=== PATIENT | male | born 1975 | race Two or more races ===

== ENCOUNTER 2016-11-06 01:47 | Inpatient (IN) | payer MEDICAID ==
[2016-11-06] VITALS (8 sets, daily range): BP systolic 130–151; BP diastolic 74–112
[~2016-11-06] VITALS: Ht 167.6 cm; Wt 209.6 kg
[~2016-11-06 01:47] MED LIST: CIPROFLOXACIN250 MG PO; HYDROCHLOROTHIA25 MG ORAL; IBUPROFEN600 MG PO; LEVAQUIN750 MG ORAL; LISINOPRIL20 MG ORAL; NAPROXEN500 M2 ORAL; NORCO 5-325 TA1 EACH ORAL; UNOBMED
--- NOTE | 2016-11-06 02:16 | Emergency Room Report ---
History of Present Illness General Chief Complaint: Edema Source: Patient Present Illness [facility] This is a 41-year-old male who has a history of fluid retention and morbid obesity. His BMI 71. He presents with chief complaint of swelling. He noticed it more in the last day or so. He said that his scrotum very swollen. Denies any nausea vomiting. Has shows of breath this is chronic. Worse when he lays flat. Worse when he exerts himself. No pain. No dysuria frequency. No nausea no vomiting. Said his water pill is not working. Allergies: Coded Allergies: No Known Allergies (Unverified , 03/09/13) Patient History Past Medical History: see triage record, old chart reviewed, CHF Past Surgical History: other Pertinent Family History: none Social History: Denies: smoking Immunizations: other Reviewed Nursing Documentation: PMH: Agreed, PSxH: Agreed Nursing Documentation-PMH Past Medical History: No History, Except For Hx Cardiac Problems: No Hx Hypertension: Yes Hx Diabetes: Yes Hx Cancer: No Hx Gastrointestinal Problems: No Hx Neurological Problems: No Hx Cerebrovascular Accident: No Hx Head Trauma: No Review of Systems Eye: Denies: eye pain, blurred vision ENT: Denies: ear pain, nose congestion, throat swelling Respiratory: Denies: cough, shortness of breath Cardiovascular: Denies: chest pain, palpitations Gastrointestinal: Denies: abdominal pain, diarrhea, nausea, vomiting Musculoskeletal: Denies: back pain, joint pain Skin: Denies: rash Neurological: Denies: headache, numbness Endocrine: Denies: increased thirst, increased urine Hematologic/Lymphatic: Denies: easy bruising All Other Systems: negative except mentioned in HPI Physical Exam Vital Signs Date Time Temp Pulse Resp B/P (MAP) Pulse Ox O2 Delivery O2 Flow Rate FiO2 11/06/16 01:49 98.1 135 22 155/120 94 Room Air vitals with high blood pressure and tachycardia Sp02 EP Interpretation: reviewed, normal General Appearance: alert, obese - Morbidly obese Head: normocephalic, atraumatic Eyes: bilateral eye PERRL, bilateral eye EOMI ENT: hearing grossly normal, normal pharynx Neck: full range of motion, supple, no meningismus Respiratory: chest non-tender, lungs clear, normal breath sounds Cardiovascular #1: regular rate, rhythm, no murmur, tachycardia, irregularly irregular Gastrointestinal: normal bowel sounds, non tender, no mass, no organomegaly, no bruit, non-distended, overweight - Very large pannus Genitourinary: other - Scrotum show diffuse edema. His penis is severely retracted inward. Musculoskeletal: back normal, normal range of motion Psychiatric: mood/affect normal Skin: warm/dry Procedures Critical Care Time Critical Care Time Critical care is mandated in this patient who presented with rapid afib and chf. Patient require my urgent intervention to attenuate the risks of metabolic collapse which may lead to cardiovascular collapse and . Critical care time is 35 minutes excluding any reportable procedure. Critical care time included evaluation, multiple reevaluation, looking at old charts, interpreting laboratory and diagnostic data, discussing case with patient and family and consultants, and charting. Medical Decision Making Diagnostic Impression: Primary Impression: CHF (congestive heart failure) Qualified Codes: I50.9 - Heart failure, unspecified Additional Impressions: Rapid atrial fibrillation Hypertension Qualified Codes: I10 - Essential (primary) hypertension Morbid obesity with BMI of 70 and over, adult Proteinuria Qualified Codes: R80.9 - Proteinuria, unspecified ER Course Patient presents with generalize edema. His CHF is probably cardiomyopathy secondary to hypertension and morbid obesity and sleep apnea. He diuresed about 2 L. [place] better. He never had a history of it her fibrillation at least based on his medication. He is only taking lisinopril and a statin. He is not on any anticoagulations. Will admit for further workup. Blood pressure much improved with Cardizem. Heart rate is now sinus at 94. Lab Results Impression labs with elevated BNP EKG Diagnostic Results EKG Time: 05:09 Rate: tachycardiac Rhythm: other - Atrial fibrillation ST Segments: other - Nonspecific ST changes Rhythm Strip Diag. Results Rhythm Strip Time: 05:09 EP Interpretation: yes Rate: 95 Rhythm: NSR, no PVC's, no ectopy Chest X-Ray Diagnostic Results Chest X-Ray Diagnostic Results : Chest X-Ray Ordered: Yes # of Views/Limited/Complete: 1 View Indication: Shortness of Breath EP Interpretation: Yes Interpretation: no consolidation, no effusion, no pneumothorax, other - Cardiomegaly Impression: Other - Cardiomegaly with vascular congestion Electronically Signed by: Electronically signed by Manuel Mills MD Last Vital Signs Date Time Temp Pulse Resp B/P (MAP) Pulse Ox O2 Delivery O2 Flow Rate FiO2 9/18/17 01:49 98.1 135 22 155/120 94 Room Air Status: unchanged Disposition: ADMITTED INPATIENT Condition: Serious Referrals: NON PHYSICIAN (PCP) MANUEL MILLS M.D. Nov 06, 2016 02:16
[2016-11-06 02:51] LABS: APPEARANCE,URINE CLEAR; KETONES,URINE 1+ (NEGATIVE); LEUKOCYTE ESTERASE ,URINE 1+ (NEGATIVE); NITRITE,URINE NEGATIVE (NEGATIVE); PH,URINE 6 (4.5-8.0); PROTEIN,URINE 4+ (NEGATIVE); UROBILINOGEN,URINE 1 MG/DL (0.0-1.0)
[2016-11-06 02:58] LABS: BASOPHILS % (AUTO) 1.3 % (0.0-2.0); EOSINOPHILS % (AUTO) 1.6 % (0.0-3.0); LYMPHOCYTES % (AUTO) 20.9 % (20.0-45.0); MEAN CORPUSCULAR HEMOGLOBIN 23.5 PG (27.0-31.0); MEAN CORPUSCULAR HGB CONC 30.8 G/DL (32.0-36.0); MEAN CORPUSCULAR VOLUME 76 FL (80-99); MEAN PLATELET VOLUME 6.1 FL (6.5-10.1); MONOCYTES % (AUTO) 7.9 % (1.0-10.0); NEUTROPHILS % (AUTO) 68.3 % (45.0-75.0); PLATELET COUNT 464 K/UL (150-450); RED BLOOD COUNT 5.48 M/UL (4.70-6.10); WHITE BLOOD COUNT 10.4 K/UL (4.8-10.8)
[2016-11-06 03:09] LABS: ANION GAP 10 (5-15); CALCIUM 10.2 mg/dL (8.6-10.2); CARBON DIOXIDE 31 mEQ/L (20-30); CHLORIDE 100 mEQ/L (98-107); CREATININE 1.3 mg/dL (0.7-1.2); GLOMERULAR FILTRATION RATE > 60 mL/min (>60); HEMOLYSIS 0; POTASSIUM 4.5 mEQ/L (3.4-4.9); SODIUM 141 mEQ/L (135-145)
[2016-11-06 03:13] LABS: BACTERIA,URINE FEW /HPF; FINE GRANULAR CASTS,URINE 0-2 /LPF; HYALINE CASTS, URINE 0-2 /LPF; RBC,URINE 0-2 /HPF (0 - 0); SQUAMOUS EPITHELIAL CELL,UR MODERATE /LPF (NONE/OCC); WBC,URINE 0-2 /HPF (0 - 0)
[2016-11-06 03:14] LABS: ICTOTEST POSITIVE
[2016-11-06] MEDS ORDERED: dilTIAZem HCl 25mg/5ml Inj IV ONE (03:15)
[2016-11-06 03:32] LABS: TROPONIN I < 0.30 ng/mL (<=0.30)
[2016-11-06] MEDS ORDERED: Acetaminophen 650 MG SUPP RECTAL PRN (07:00)
[2016-11-06] MEDS ORDERED: Miralax 17gm pkt ORAL PRN (07:00)
[2016-11-06] MEDS ORDERED: Mylanta II UD 30ml ORAL PRN (07:00)
[2016-11-06] MEDS: Docusate 100mg cap ORAL SCH ×2 (08:43→21:04)
[2016-11-06] MEDS: Aspirin EC 81mg tab ORAL SCH (08:43)
[2016-11-06] MEDS ORDERED: Metoprolol Succinate XL 50mg tab ORAL SCH (09:00)
--- NOTE | 2016-11-06 10:31 | Diagnostic Imaging Report ---
Indication: SOB Technique: One view of the chest Comparison: 12/03/2015 12/03/2015 Findings: Patient body habitus limits evaluation. The heart is markedly enlarged. There is equivocal mild interstitial congestion. No definite effusions Impression: Cardiomegaly Possible mild congestive heart failure. Correlate with clinical findings
[2016-11-06] MEDS: Heparin 5000 units/ml inj SUBQ SCH ×2 (14:13→22:29)
--- NOTE | 2016-11-06 17:44 | Cardiology Progress Note ---
Subjective Subjective [id number] Objective Last 24 Hour Vital Signs Date Time Temp Pulse Resp B/P (MAP) Pulse Ox O2 Delivery O2 Flow Rate FiO2 11/06/16 16:00 97.5 113 20 150/74 99 Nasal Cannula 11/06/16 16:00 109 11/06/16 12:33 97.0 102 20 151/90 100 Nasal Cannula 2.0 11/06/16 12:00 115 11/06/16 08:43 100 139/95 11/06/16 08:00 91 11/06/16 08:00 97.5 100 20 139/95 96 Nasal Cannula 11/06/16 06:30 98.1 108 19 134/96 97 Nasal Cannula 2.0 11/06/16 06:30 97.8 98 20 130/82 98 Nasal Cannula 2.0 11/06/16 05:57 98.1 108 19 134/96 97 Nasal Cannula 2.0 11/06/16 04:18 98.1 64 16 151/106 98 Nasal Cannula 2.0 11/06/16 03:11 130 151/112 11/06/16 02:42 98.1 124 27 151/112 97 Room Air 11/06/16 02:42 124 27 Room Air 11/06/16 01:49 98.1 135 22 155/120 94 Room Air Intake and Output 11/06/16 11/07/16 19:00 07:00 Intake Total 590 ml Balance 590 ml Intake Oral 590 ml # Voids 1 Laboratory Tests Test 11/06/16 02:12 11/06/16 02:20 Urine Color Yellow Urine Appearance Clear Urine pH 6 (4.5-8.0) Urine Specific [place] 1.020 (1.005-1.035) Urine Protein 4+ (NEGATIVE) H Urine Glucose (UA) Negative (NEGATIVE) Urine Ketones 1+ (NEGATIVE) H Urine Occult Blood 1+ (NEGATIVE) H Urine Nitrite Negative (NEGATIVE) Urine Bilirubin 1+ (NEGATIVE) H Urine Ictotest Positive Urine Urobilinogen 1 MG/DL (0.0-1.0) H Urine Leukocyte Esterase 1+ (NEGATIVE) H Urine RBC 0-2 /HPF (0 - 0) H Urine WBC 0-2 /HPF (0 - 0) Urine Squamous Epithelial Cells Moderate /LPF (NONE/OCC) H Urine Bacteria Few /HPF (NONE) Urine Hyaline Casts 0-2 /LPF (NONE) H Urine Fine Granular Casts 0-2 /LPF (NONE) H White Blood Count 10.4 K/UL (4.8-10.8) Red Blood Count 5.48 M/UL (4.70-6.10) Hemoglobin 12.8 G/DL (14.2-18.0) L Hematocrit 41.8 % (42.0-52.0) L Mean Corpuscular Volume 76 FL (80-99) L Mean Corpuscular Hemoglobin 23.5 PG (27.0-31.0) L Mean Corpuscular Hemoglobin Concent 30.8 G/DL (32.0-36.0) L Red Cell Distribution Width 17.0 % (11.6-14.8) H Platelet Count 464 K/UL (150-450) H Mean Platelet Volume 6.1 FL (6.5-10.1) L Neutrophils (%) (Auto) 68.3 % (45.0-75.0) Lymphocytes (%) (Auto) 20.9 % (20.0-45.0) Monocytes (%) (Auto) 7.9 % (1.0-10.0) Eosinophils (%) (Auto) 1.6 % (0.0-3.0) Basophils (%) (Auto) 1.3 % (0.0-2.0) Sodium Level 141 mEQ/L (135-145) Potassium Level 4.5 mEQ/L (3.4-4.9) Chloride Level 100 mEQ/L (98-107) Carbon Dioxide Level 31 mEQ/L (20-30) H Anion Gap 10 (5-15) Blood Urea Nitrogen 20 mg/dL (7-23) Creatinine 1.3 mg/dL (0.7-1.2) H Estimat Glomerular Filtration Rate > 60 mL/min (>60) Glucose Level 123 mg/dL (74-106) H Calcium Level 10.2 mg/dL (8.6-10.2) Troponin I < 0.30 ng/mL (<=0.30) Pro-B-Type Natriuretic Peptide 3680 pg/mL (0-125) H OLIVER MALDONADO Nov 06, 2016 17:44
[2016-11-06] MEDS ORDERED: Metoprolol Succinate XL 25mg tab ORAL ONE (18:00)
--- NOTE | 2016-11-06 18:30 | History and Physical Report ---
DATE OF ADMISSION: 11/06/2016 CHIEF COMPLAINT: Shortness of breath and generalized swelling. History Of Present Illness: This is a 41-year-old male, who has history of morbid obesity and hypertension. The patient is followed at [facility] in [place]. The patient claims that he was never admitted to hospital and never had irregular heart rate. He presented to the emergency department in full-blown heart failure and atrial fibrillation. PAST MEDICAL HISTORY: 1. Morbid obesity. 2. Hypertensive cardiovascular disease. 3. Borderline diabetes. Home Medications: [place] p.r.n., hydrochlorothiazide, Motrin p.r.n., recent treatment with Levaquin, lisinopril, and naproxen p.r.n. ALLERGIES: No known drug allergies. FAMILY HISTORY: Unremarkable. Social History: The patient is employed. He is nonsmoker and nondrinker. There is no history of illicit drug abuse. Review Of Systems: HEENT: Hearing and eyesight are normal. Endocrine: Significant for morbid obesity and borderline diabetes. Respiratory: Significant for gradual increasing shortness of breath. Cardiovascular: He denies chest pain. He has recurrent palpitations. Gastrointestinal: No history of hematochezia, melena, hematemesis, diarrhea, or constipation. Genitourinary: He denies dysuria. He has nocturia x2 to 3. Neurologic: No history of stroke, syncope, or Parkinson disease. PHYSICAL EXAMINATION: GENERAL: This is a middle-aged morbidly obese male. Vital Signs: His weight is 200 pounds, height is 167.6 cm, and BMI 71. Current blood pressure is 134/96, pulse 98, respirations 18, and temperature 98.1. HEENT: Head is normocephalic and atraumatic. Pupils are equal, round, and reactive to light and accommodation consensually. Neck: Supple. Trachea midline. There was no lymphadenopathy or thyromegaly. LUNGS: Clear to auscultation and percussion. Heart: Irregularly irregular and distant. No rubs, murmurs, or gallops. ABDOMEN: Soft. Bowel sounds were active. EXTREMITIES: Notable for 3+ brawny edema bilaterally. Neurological: He is alert and oriented x4. Cranial nerves II through XII are intact. Laboratory And Ancillary Data: CBC within normal limits. Serum chemistry, creatinine 1.3, BUN 20, and CO2 31. Pro-B natriuretic peptide 3680. Troponin level less than 0.3. EKG, atrial flutter with variable AV block. Chest x-ray, no consolidation, no effusion; cardiomegaly. ASSESSMENT: 1. Paroxysmal atrial fibrillation/flutter. 2. Worsening congestive heart failure, mainly diastolic. 3. Morbid obesity. 4. Hypertensive cardiovascular disease. 5. Borderline diabetes. PLAN: 1. Cardizem, currently the patient's heart rate is tolerable, less than 100. 2. beta-blockers. 3. Check 2D echo. 4. Cardiology consult. 5. Continue to diurese. Rosemarie Jackson M.D. DR: DAO JOB#: [id number] CC:
--- NOTE | 2016-11-06 18:56 | Cardiology Report ---
APPROVED REPORT EXAM: Two-dimensional and M-mode echocardiogram with Doppler and color Doppler. INDICATION Complete Heart Block M-Mode DIMENSIONS IVSd1.1 (0.7-1.1cm)Left Atrium (MM)6.3 (1.6-4.0cm) LVDd6.8 (3.5-5.6cm)Aortic Root3.2 (2.0-3.7cm) PWd1.3 (0.7-1.1cm)Aortic Cusp Exc.2.0 (1.5-2.0cm) LVDs5.2 (2.5-4.0cm) PWs1.4 cm Technically limited and difficult study due to poor acoustical windows. Normal left ventricular chamber size, systolic function and wall motion. Left ventricular ejection fraction estimated to be grossly normal. No evidence of left ventricular hypertrophy. Small posterior pericardial effusion. Focal aortic valve sclerosis with adequate cusp excursion. Thickened mitral valve leaflets with normal excursion. Mild mitral annulus and aortic root calcification. Pulmonic valve is well visualized. Normal tricuspid valve structure. IVC not obtainable. A color flow and spectral Doppler study was performed and revealed: Pulmonic regurgitation present. Small pericardial effusion.
[2016-11-07 00:14] VITALS: BP 156/81
--- NOTE | 2016-11-07 01:15 | Consultation ---
DATE OF CONSULTATION: 11/06/2016 CARDIOLOGY CONSULTATION CONSULTING PHYSICIAN: Brittney Wood M.D. ATTENDING PHYSICIAN: Rosemarie Jackson M.D. PATIENT IDENTIFICATION DATA: This is a 41-year-old male. REASON FOR ADMISSION: Extreme edema and shortness of breath. History Of Present Illness: The patient reports that he gained approximately 300 pounds in 4 years and then he became very short of breath. He is going to outside clinic. He also has severe edema of his scrotum and lower extremities. Previously, he was here in the hospital and he had drainage of the swollen fluid around his knee. The patient does not have any chest pain. No syncopal episode, but he is short of breath, although right now he feels slightly better. Past Medical History: Significant for morbid obesity, swelling, knee drainage, and left arm surgery for fracture. MEDICATIONS: His medications are reviewed and reconciled. ALLERGIES: Not documented. HABITS: He denies history of drinking, smoking, or drug abuse. SOCIAL HISTORY: He is and lives with his son. Review Of Systems: Significant for shortness of breath. No cough. No hemoptysis. No blood in the stool. No diarrhea. Severe swelling of lower extremities. Pain of all joints. PHYSICAL EXAMINATION: General: This is a 41-year-old gentleman, who is morbidly obese. He is resting in his bed. He is moderately short of breath. Vital Signs: His blood pressure is 150/70, his heart rate is 113, his temperature is 98.1, and his oxygen saturation on two liters of oxygen is 96%. HEENT: PERRLA. EOMI. NECK: Supple. Jugular pressure is not measurable due to short neck. LUNGS: Scattered crackles. No wheezing. HEART: Irregular. Very distant. Abdomen: Morbidly obese. There is anasarca. There is skin thickening at the dependent areas of his abdomen, testicles, and on his legs. He has extreme swelling of his abdomen, legs, and testicles. NEUROLOGIC: He appears to be intact. Laboratory and diagnostic Data: His ECG showed atrial fibrillation at a rate of 123 beats per minute and he looks like there is a right axis deviation and right ventricular hypertrophy. His chest x-ray is poor quality and it shows cardiomegaly. His blood tests are all reviewed and BNP is elevated. His hemoglobin is 12.8, but his MCV is 76, and his BNP is 3680. Impression And Recommendation: Congestive heart failure, acute on chronic. Left ventricular function is unknown yet. Echo was done, but I did not review it yet. His atrial fibrillation with rapid ventricular rate. Evidence of right heart failure with severe peripheral edema and anasarca, highly suspicious for sleep apnea. Possible hyperthyroidism. Plan: The patient is being diuresed. We are going to increase his dose of metoprolol. I am going to check if he has diabetes then he probably is a candidate for anticoagulation with Coumadin, but I am worried about his anemia and the presence of low MCV, which could suggest that he is having some iron deficiency and I did not want to anticoagulate the patient like this. I am going to also review his echo. Practically, the patient needs to have endocrine evaluation. He needs to have a dramatic weight loss program. I agree with diuresis and rate control. There is no indication to perform cardioversion at this time as an emergency. Thank you for the consult. Brittney Wood M.D. DR: EVE JOB#: [id number] CC:
[2016-11-07 04:00] VITALS: BP 149/89
[2016-11-07] MEDS: Heparin 5000 units/ml inj SUBQ SCH ×3 (05:39→21:53)
[2016-11-07 07:38] LABS: ALANINE AMINOTRANSFERASE 13 U/L (3-41); ANION GAP 13 (5-15); ASPARTATE AMINO TRANSFERASE 19 U/L (5-40); CALCIUM 8.8 mg/dL (8.6-10.2); CARBON DIOXIDE 31 mEQ/L (20-30); CHLORIDE 100 mEQ/L (98-107); CREATININE 1.3 mg/dL (0.7-1.2); GLOMERULAR FILTRATION RATE > 60 mL/min (>60); HEMOLYSIS 0; POTASSIUM 4.2 mEQ/L (3.4-4.9); SODIUM 144 mEQ/L (135-145)
[2016-11-07 07:56] LABS: HEMOGLOBIN A1C 6.4 % (< 6.0)
[2016-11-07 08:17] VITALS: BP 161/106
[2016-11-07] MEDS: Aspirin EC 81mg tab ORAL SCH (09:31)
[2016-11-07] MEDS: Metoprolol Succinate XL 100mg tab ORAL SCH (09:32)
[2016-11-07] MEDS: Docusate 100mg cap ORAL SCH ×2 (09:33→20:15)
--- NOTE | 2016-11-07 10:58 | General Progress Note ---
Assessment/Plan Assessment/Plan CHF - diurese. 2 D Echo unimpressive. Needs to be anticoagulated? To DALILA Wood. Replete Mg. Subjective Allergies: Coded Allergies: No Known Allergies (Unverified , 03/09/13) Subjective Still SOB. Objective Last 24 Hour Vital Signs Date Time Temp Pulse Resp B/P (MAP) Pulse Ox O2 Delivery O2 Flow Rate FiO2 11/07/16 09:32 115 161/106 11/07/16 08:17 96.6 115 20 161/106 95 Nasal Cannula 2.0 11/07/16 04:00 98.3 92 20 149/89 98 Nasal Cannula 2.0 11/07/16 04:00 106 11/07/16 00:14 97.8 103 20 156/81 98 Nasal Cannula 11/07/16 00:00 107 11/06/16 20:47 97.7 118 20 137/74 98 Nasal Cannula 11/06/16 20:00 117 11/06/16 18:33 109 150/74 11/06/16 16:00 97.5 113 20 150/74 99 Nasal Cannula 11/06/16 16:00 109 11/06/16 12:33 97.0 102 20 151/90 100 Nasal Cannula 2.0 11/06/16 12:00 115 Intake and Output 11/07/16 11/08/16 19:00 07:00 Intake Total 200 ml Balance 200 ml Intake Oral 200 ml # Voids 1 # Bowel Movements 1 Laboratory Tests 11/07/16 04:50: Sodium Level 144, Potassium Level 4.2, Chloride Level 100, Carbon Dioxide Level 31H, Anion Gap 13, Blood Urea Nitrogen 22, Creatinine 1.3H, Estimat Glomerular Filtration Rate > 60, Glucose Level 94, Hemoglobin A1c 6.4H, Calcium Level 8.8, Magnesium Level 1.6L, Total Bilirubin 0.9, Aspartate Amino Transf (AST/SGOT) 19 , Alanine Aminotransferase (ALT/SGPT) 13, Alkaline Phosphatase 101, Total Protein 7.0, Albumin 3.5, Globulin 3.5, Albumin/Globulin Ratio 1.0, Thyroid Stimulating Hormone (TSH) 5.180H Height (Feet): 5 Height (Inches): 6.00 Weight (Pounds): 440 Objective Monitor A. Flutter ~ 90 Cv IRR Morbidly obese Lungs CTA Abd SNT. BS + E +3 B leg edema SHECHTER,PAGIEL Nov 07, 2016 10:58
[2016-11-07 11:43] VITALS: BP 135/107
[2016-11-07 15:28] VITALS: BP 168/95
[2016-11-07 20:00] VITALS: BP 143/83
[2016-11-08] VITALS: BP 145/103
[2016-11-08 04:00] VITALS: BP 148/81
[2016-11-08] MEDS: Heparin 5000 units/ml inj SUBQ SCH ×3 (05:34→22:25)
[2016-11-08 08:00] VITALS: BP 151/115
[2016-11-08] MEDS: Docusate 100mg cap ORAL SCH ×2 (09:53→22:23)
[2016-11-08] MEDS: Aspirin EC 81mg tab ORAL SCH (09:53)
[2016-11-08] MEDS: Metoprolol Succinate XL 100mg tab ORAL SCH (09:55)
[2016-11-08 12:00] VITALS: BP 110/67
--- NOTE | 2016-11-08 12:23 | General Progress Note ---
Assessment/Plan Assessment/Plan CHF - to increase diuresis. 2 D Echo unimpressive. Needs to be anticoagulated. Check. Apply for Medi Inderjit Subjective Allergies: Coded Allergies: No Known Allergies (Unverified , 03/09/13) Subjective Still SOB. c/o Scrotal edema. Objective Last 24 Hour Vital Signs Date Time Temp Pulse Resp B/P (MAP) Pulse Ox O2 Delivery O2 Flow Rate FiO2 11/08/16 09:55 106 151/115 11/08/16 08:00 97.3 106 22 151/115 93 Nasal Cannula 3.0 11/08/16 04:00 98.1 102 24 148/81 97 Nasal Cannula 2.0 11/08/16 04:00 97 11/08/16 00:00 98.0 98 24 145/103 95 Nasal Cannula 2.0 11/08/16 00:00 91 11/07/16 20:00 97.4 98 20 143/83 96 Nasal Cannula 2.0 11/07/16 20:00 100 11/07/16 16:00 102 11/07/16 15:28 96.4 102 20 168/95 94 Nasal Cannula 2.0 Height (Feet): 5 Height (Inches): 6.00 Weight (Pounds): 440 Objective Monitor A. Flutter ~ 100 Cv IRR Morbidly obese Lungs CTA Abd SNT. BS + E +3 B leg edema. +4 Scrotal edema MYRTLE NATARAJAN Nov 08, 2016 12:23
[2016-11-08 15:10] LABS: INR 1.3 (0.9-1.1); PROTHROMBIN TIME 13.7 SEC (9.30-11.50)
[2016-11-08 16:00] VITALS: BP 144/91
--- NOTE | 2016-11-08 16:48 | Cardiology Progress Note ---
Assessment/Plan Assessment/Plan I reviewed his echo and he has dilated right ventricle, large left atrium, elevated PAP pressure LV function appeared to be preserved, although the views were suboptimal congestive heart failure: on diuretics, b-blockers, I recommended fluid restriction a fib his rate is around 100 which is acceptable he should be anticoagulated, but I am concerned about blood on his toilet paper and Hb with low MCV he has significant risk of bleeding possible sleep apnea-needs evaluation the prognosis of this patient is poor, unless he looses 200 lb LV d/w Dr Price Subjective Subjective the patient is sitting at the edge of the bed feeling the same he also is concerned that her had bright red blood when his buttock was wiped today he is asking how much water he should drink Objective Last 24 Hour Vital Signs Date Time Temp Pulse Resp B/P (MAP) Pulse Ox O2 Delivery O2 Flow Rate FiO2 11/08/16 16:00 97.2 83 18 144/91 92 Nasal Cannula 3.0 11/08/16 12:00 97.3 93 20 110/67 Nasal Cannula 4.0 11/08/16 12:00 107 11/08/16 09:55 106 151/115 11/08/16 08:00 104 11/08/16 08:00 97.3 106 22 151/115 93 Nasal Cannula 3.0 11/08/16 04:00 98.1 102 24 148/81 97 Nasal Cannula 2.0 11/08/16 04:00 97 11/08/16 00:00 98.0 98 24 145/103 95 Nasal Cannula 2.0 11/08/16 00:00 91 11/07/16 20:00 97.4 98 20 143/83 96 Nasal Cannula 2.0 11/07/16 20:00 100 General Appearance: other - morbidly obese EENT: PERRL/EOMI Neck: other - cannot see JVD because of neck configuration Rhythm: Afib Cardiovascular: tachycardia Respiratory/Chest: crackles/rales Abdomen: other - extremely obese and distended, with dependent edema Extremities: other - extreme edema Neurologic: car shifter II-XII grossly normal Intake and Output 11/08/16 11/09/16 19:00 07:00 # Bowel Movements 1 Laboratory Tests Test 11/08/16 14:45 Prothrombin Time 13.7 SEC (9.30-11.50) H Prothromb Time International Ratio 1.3 (0.9-1.1) H OLIVER MALDONADO Nov 08, 2016 16:48
[2016-11-08] MEDS ORDERED: Warfarin Sodium 10mg ORAL ONE (17:00)
[2016-11-08 20:00] VITALS: BP 150/98
[2016-11-09] VITALS: BP 147/100
[2016-11-09 04:00] VITALS: BP 144/100
[2016-11-09] MEDS: Heparin 5000 units/ml inj SUBQ SCH ×3 (05:20→21:33)
[2016-11-09 08:00] VITALS: BP 156/109
[2016-11-09 08:26] LABS: ANION GAP 12 (5-15); CALCIUM 8.8 mg/dL (8.6-10.2); CARBON DIOXIDE 30 mEQ/L (20-30); CHLORIDE 100 mEQ/L (98-107); CREATININE 1.2 mg/dL (0.7-1.2); GLOMERULAR FILTRATION RATE > 60 mL/min (>60); HEMOLYSIS 0; MAGNESIUM 1.7 mg/dL (1.7-2.5); POTASSIUM 4.3 mEQ/L (3.4-4.9); SODIUM 142 mEQ/L (135-145)
[2016-11-09 08:31] LABS: INR 1.3 (0.9-1.1); PROTHROMBIN TIME 13.8 SEC (9.30-11.50)
--- NOTE | 2016-11-09 09:17 | General Progress Note ---
Assessment/Plan Assessment/Plan 1) A fib 2)_ CHF 3) HTN--uncontrolled 4) morbid obesity Plan continue fluid restriction Coumadin 12 mg and Rx to dose Subjective Allergies: Coded Allergies: No Known Allergies (Unverified , 03/09/13) Subjective Denies any c/o Objective Last 24 Hour Vital Signs Date Time Temp Pulse Resp B/P (MAP) Pulse Ox O2 Delivery O2 Flow Rate FiO2 11/09/16 04:00 97.0 94 22 144/100 93 Nasal Cannula 11/09/16 04:00 81 11/09/16 00:00 100 11/09/16 00:00 97.9 98 20 147/100 95 Nasal Cannula 11/08/16 20:00 101 11/08/16 20:00 97.7 95 22 150/98 95 Nasal Cannula 11/08/16 16:00 97.2 83 18 144/91 92 Nasal Cannula 3.0 11/08/16 16:00 91 11/08/16 12:00 97.3 93 20 110/67 Nasal Cannula 4.0 11/08/16 12:00 107 11/08/16 09:55 106 151/115 Laboratory Tests 11/08/16 14:45: Prothrombin Time 13.7H, Prothromb Time International Ratio 1.3H 11/09/16 07:15: Prothrombin Time 13.8H, Prothromb Time International Ratio 1.3H, D-Dimer 2172H, Sodium Level 142, Potassium Level 4.3, Chloride Level 100, Carbon Dioxide Level 30, Anion Gap 12, Blood Urea Nitrogen 27H, Creatinine 1.2, Estimat Glomerular Filtration Rate > 60, Glucose Level 90, Calcium Level 8.8, Magnesium Level 1.7 Height (Feet): 5 Height (Inches): 6.00 Weight (Pounds): 440 Objective NAD, morbid obese mild bilat crackles+ S1, S2,irre, no M/R/G soft, non tender, BS+ edema+ MCCONNELL,NATHALY Nov 09, 2016 09:17
[2016-11-09] MEDS: Aspirin EC 81mg tab ORAL SCH (09:47)
[2016-11-09] MEDS: HydrALAZINE 25mg tab ORAL SCH ×2 (09:47→20:08)
[2016-11-09] MEDS: Docusate 100mg cap ORAL SCH ×2 (09:47→20:09)
[2016-11-09] MEDS: Metoprolol Succinate XL 100mg tab ORAL SCH (09:48)
[2016-11-09 12:00] VITALS: BP 158/116
[2016-11-09 16:00] VITALS: BP 159/111
[2016-11-09] MEDS ORDERED: Warfarin Sod 10 MG, Warfarin Sod 2 MG ORAL ONE ×2 (17:00)
[2016-11-09 20:00] VITALS: BP 152/94
[2016-11-10] VITALS (7 sets, daily range): BP systolic 136–172; BP diastolic 64–100
[2016-11-10] MEDS: Heparin 5000 units/ml inj SUBQ SCH ×3 (05:01→21:19)
[2016-11-10 08:39] LABS: INR 1.4 (0.9-1.1); PROTHROMBIN TIME 14.3 SEC (9.30-11.50)
--- NOTE | 2016-11-10 09:06 | General Progress Note ---
Assessment/Plan Assessment/Plan 1) A fib 2)_ CHF 3) HTN--uncontrolled 4) morbid obesity Plan continue fluid restriction Discussed with Rx to increase Coumadin to 15 mg today Hydralazine 50 mg TID pending venous droppler Subjective Allergies: Coded Allergies: No Known Allergies (Unverified , 03/09/13) Subjective Denies any c/o. no reported fever Objective Last 24 Hour Vital Signs Date Time Temp Pulse Resp B/P (MAP) Pulse Ox O2 Delivery O2 Flow Rate FiO2 11/10/16 04:00 78 11/10/16 04:00 98.0 96 20 158/100 95 Nasal Cannula 11/10/16 00:00 104 11/10/16 00:00 98.6 100 20 147/94 95 Nasal Cannula 11/09/16 20:08 154/88 11/09/16 20:00 96.8 98 20 152/94 98 Room Air 11/09/16 20:00 88 11/09/16 16:00 98 11/09/16 16:00 97.0 89 20 159/111 98 Nasal Cannula 3.0 11/09/16 12:00 96 11/09/16 12:00 97.3 93 21 158/116 Nasal Cannula 3.0 11/09/16 09:48 98 156/109 11/09/16 09:47 156/109 Laboratory Tests 11/10/16 06:15: Prothrombin Time 14.3H, Prothromb Time International Ratio 1.4H Height (Feet): 5 Height (Inches): 6.00 Weight (Pounds): 440 Objective NAD, morbid obese mild bilat crackles+ S1, S2,irre, no M/R/G soft, non tender, BS+ edema+ MCCONNELL,NATHALY Nov 10, 2016 09:06
[2016-11-10] MEDS: Aspirin EC 81mg tab ORAL SCH (09:43)
[2016-11-10] MEDS: Metoprolol Succinate XL 100mg tab ORAL SCH (09:44)
[2016-11-10] MEDS: Docusate 100mg cap ORAL SCH ×2 (09:44→21:17)
[2016-11-10 10:02] LABS: BASOPHILS % (AUTO) 0.9 % (0.0-2.0); EOSINOPHILS % (AUTO) 1.8 % (0.0-3.0); MEAN CORPUSCULAR HEMOGLOBIN 23.6 PG (27.0-31.0); MEAN CORPUSCULAR HGB CONC 30.3 G/DL (32.0-36.0); MEAN CORPUSCULAR VOLUME 78 FL (80-99); MEAN PLATELET VOLUME 6.3 FL (6.5-10.1); MONOCYTES % (AUTO) 10.1 % (1.0-10.0); NEUTROPHILS % (AUTO) 64.2 % (45.0-75.0); PLATELET COUNT 401 K/UL (150-450); RED BLOOD COUNT 5.41 M/UL (4.70-6.10); RED CELL DISTRIBUTION WIDTH 17.5 % (11.6-14.8); WHITE BLOOD COUNT 8.3 K/UL (4.8-10.8)
[2016-11-10 10:13] LABS: ANION GAP 12 (5-15); CALCIUM 8.5 mg/dL (8.6-10.2); CARBON DIOXIDE 32 mEQ/L (20-30); CHLORIDE 97 mEQ/L (98-107); CREATININE 1.2 mg/dL (0.7-1.2); GLOMERULAR FILTRATION RATE > 60 mL/min (>60); HEMOLYSIS 2; POTASSIUM 4.1 mEQ/L (3.4-4.9); SODIUM 141 mEQ/L (135-145)
[2016-11-10] MEDS: HydrALAZINE 50mg tab ORAL SCH ×2 (15:00→21:17)
[2016-11-10] MEDS ORDERED: Warfarin Sod 10 MG, Warfarin Sod 5 MG ORAL ONE ×2 (17:00)
[2016-11-11] VITALS (7 sets, daily range): BP systolic 128–170; BP diastolic 67–105
[2016-11-11] MEDS: HydrALAZINE 50mg tab ORAL SCH (05:54)
[2016-11-11] MEDS: Heparin 5000 units/ml inj SUBQ SCH ×3 (05:56→22:24)
[2016-11-11 06:57] LABS: INR 1.8 (0.9-1.1)
[2016-11-11] MEDS: Docusate 100mg cap ORAL SCH ×2 (08:23→21:00)
[2016-11-11] MEDS: Aspirin EC 81mg tab ORAL SCH (08:23)
[2016-11-11] MEDS: Metoprolol Succinate XL 100mg tab ORAL SCH ×2 (08:24→21:16)
--- NOTE | 2016-11-11 11:59 | General Progress Note ---
Assessment/Plan Assessment/Plan CHF - to increase diuresis. 2 D Echo unimpressive. Needs to be anticoagulated. INR 1.8 Start Cardizem Subjective Allergies: Coded Allergies: No Known Allergies (Unverified , 03/09/13) Subjective Still SOB. c/o Scrotal edema. Objective Last 24 Hour Vital Signs Date Time Temp Pulse Resp B/P (MAP) Pulse Ox O2 Delivery O2 Flow Rate FiO2 11/11/16 11:51 97.7 102 20 170/102 100 Nasal Cannula 2.0 11/11/16 08:24 84 153/105 11/11/16 08:18 97.5 84 20 153/105 96 Nasal Cannula 2.0 11/11/16 08:00 107 11/11/16 05:54 145/100 11/11/16 04:00 98 11/11/16 04:00 97.8 91 20 145/100 99 Room Air 3.0 11/11/16 00:14 143/67 11/11/16 00:00 115 11/10/16 23:52 97.9 94 20 172/100 99 Room Air 11/10/16 21:17 166/86 11/10/16 20:22 98.0 83 20 166/86 98 Room Air 11/10/16 20:00 109 11/10/16 16:00 102 11/10/16 16:00 97.8 94 20 136/64 97 Simple Mask 11/10/16 15:00 150/82 11/10/16 12:00 97.6 98 20 150/82 97 Nasal Cannula 11/10/16 12:00 109 Intake and Output 11/11/16 11/12/16 19:00 07:00 Intake Total 320 ml Output Total 1000 ml Balance -680 ml Intake Oral 320 ml Output Urine Total 1000 ml Laboratory Tests 11/11/16 05:25: Prothrombin Time 19.0H, Prothromb Time International Ratio 1.8H Height (Feet): 5 Height (Inches): 6.00 Weight (Pounds): 476 Objective Monitor A. Flutter ~ 100 Cv IRR Morbidly obese Lungs CTA Abd SNT. BS + E +3 B leg edema. +4 Scrotal edema MYRTLE NATARAJAN Nov 11, 2016 11:59
[2016-11-11] MEDS ORDERED: dilTIAZem HCl CD 120mg cap ORAL SCH (13:00)
[2016-11-11] MEDS: Norco 5mg/325mg tab ORAL PRN (13:30)
[2016-11-11] MEDS ORDERED: Warfarin Sodium 10mg ORAL ONE ×2 (17:00)
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
[2016-11-12] VITALS (7 sets, daily range): BP systolic 131–169; BP diastolic 73–105
[2016-11-12] MEDS: Heparin 5000 units/ml inj SUBQ SCH (06:11)
[2016-11-12 06:42] LABS: INR 2.3 (0.9-1.1); PROTHROMBIN TIME 24.2 SEC (9.30-11.50)
[2016-11-12] MEDS: Metoprolol Succinate XL 100mg tab ORAL SCH (09:26)
[2016-11-12] MEDS: Aspirin EC 81mg tab ORAL SCH (09:26)
[2016-11-12] MEDS: Docusate 100mg cap ORAL SCH ×2 (09:26→20:45)
--- NOTE | 2016-11-12 13:34 | General Progress Note ---
Assessment/Plan Assessment/Plan CHF - to increase diuresis. 2 D Echo unimpressive. Needs to be anticoagulated. INR 2.3 Start Cardizem BP still high. Revise meds again. Subjective Allergies: Coded Allergies: No Known Allergies (Unverified , 03/09/13) Subjective Still SOB. c/o Scrotal edema. Objective Last 24 Hour Vital Signs Date Time Temp Pulse Resp B/P (MAP) Pulse Ox O2 Delivery O2 Flow Rate FiO2 11/12/16 13:20 98.3 78 20 144/98 95 Nasal Cannula 2.0 11/12/16 12:09 98.2 87 20 169/105 95 Nasal Cannula 2.0 11/12/16 12:00 89 11/12/16 09:26 87 156/81 11/12/16 08:29 98.7 87 18 156/81 95 Nasal Cannula 2.0 11/12/16 08:00 86 11/12/16 04:38 97.0 70 20 155/95 Nasal Cannula 11/12/16 04:00 77 11/12/16 00:18 98.6 75 20 139/82 Room Air 11/12/16 00:00 75 11/11/16 21:16 71 141/78 11/11/16 20:20 98.7 71 20 141/78 Room Air 11/11/16 20:00 81 11/11/16 16:00 91 11/11/16 15:25 98.0 98 20 128/73 100 Nasal Cannula 2.0 11/11/16 13:29 110 159/100 Intake and Output 11/12/16 11/13/16 19:00 07:00 Intake Total 240 ml Output Total 750 ml Balance -510 ml Intake Oral 240 ml Output Urine Total 750 ml Laboratory Tests 11/12/16 05:45: Prothrombin Time 24.2H, Prothromb Time International Ratio 2.3H, Magnesium Level 1.5L Height (Feet): 5 Height (Inches): 6.00 Weight (Pounds): 472 Objective Monitor A. Flutter ~ 100 Cv IRR Morbidly obese Lungs CTA Abd SNT. BS + E +3 B leg edema. +4 Scrotal edema MYRTLE NATARAJAN Nov 12, 2016 13:34
[2016-11-12] MEDS: Warfarin Sodium 5mg ORAL SCH (16:37)
[2016-11-12] MEDS ORDERED: Warfarin Sodium 7.5mg ORAL ONE (17:00)
--- NOTE | 2016-11-12 18:31 | Cardiology Progress Note ---
Assessment/Plan Assessment/Plan noted Dr Jackson changed Metoprolol to Labetalol noted that his INR is 2.3 suspect pt has sleep apnea monitor INR closely Subjective Subjective thstill has a lot of pian around the srotum dyspnea is better edema slightly better Objective Last 24 Hour Vital Signs Date Time Temp Pulse Resp B/P (MAP) Pulse Ox O2 Delivery O2 Flow Rate FiO2 11/12/16 16:02 96.4 90 20 146/73 99 Nasal Cannula 2.0 11/12/16 16:00 89 11/12/16 13:20 98.3 78 20 144/98 95 Nasal Cannula 2.0 11/12/16 12:09 98.2 87 20 169/105 95 Nasal Cannula 2.0 11/12/16 12:00 89 11/12/16 09:26 87 156/81 11/12/16 08:29 98.7 87 18 156/81 95 Nasal Cannula 2.0 11/12/16 08:00 86 11/12/16 04:38 97.0 70 20 155/95 Nasal Cannula 11/12/16 04:00 77 11/12/16 00:18 98.6 75 20 139/82 Room Air 11/12/16 00:00 75 11/11/16 21:16 71 141/78 11/11/16 20:20 98.7 71 20 141/78 Room Air 11/11/16 20:00 81 General Appearance: other - motbidly obese EENT: PERRL/EOMI Neck: JVD - Rhythm: Afib Cardiovascular: tachycardia Respiratory/Chest: crackles/rales Abdomen: other - very distended Extremities: severe edema Neurologic: other Intake and Output 11/12/16 11/13/16 19:00 07:00 Intake Total 560 ml Output Total 750 ml Balance -190 ml Intake Oral 360 ml IV Total 200 ml Output Urine Total 750 ml Laboratory Tests Test 11/12/16 05:45 Prothrombin Time 24.2 SEC (9.30-11.50) H Prothromb Time International Ratio 2.3 (0.9-1.1) H Magnesium Level 1.5 mg/dL (1.7-2.5) OLIVER FERNANDES Nov 12, 2016 18:31
[2016-11-12] MEDS: Labetalol 200mg tab ORAL SCH (20:43)
[2016-11-12] MEDS: Norco 5mg/325mg tab ORAL PRN (23:04)
[2016-11-13] VITALS: BP 141/79
[2016-11-13 04:00] VITALS: BP 147/74
[2016-11-13 07:48] LABS: INR 2.4 (0.9-1.1); PROTHROMBIN TIME 25.6 SEC (9.30-11.50)
[2016-11-13 07:55] LABS: ANION GAP 9 (5-15); CALCIUM 8.5 mg/dL (8.6-10.2); CARBON DIOXIDE 37 mEQ/L (20-30); CHLORIDE 98 mEQ/L (98-107); GLOMERULAR FILTRATION RATE > 60 mL/min (>60); HEMOLYSIS 0; POTASSIUM 3.2 mEQ/L (3.4-4.9); SODIUM 144 mEQ/L (135-145)
[2016-11-13 08:00] VITALS: BP 147/106
[2016-11-13] MEDS: Aspirin EC 81mg tab ORAL SCH (08:54)
[2016-11-13] MEDS: Docusate 100mg cap ORAL SCH ×2 (08:54→20:24)
[2016-11-13] MEDS: Labetalol 200mg tab ORAL SCH ×2 (08:54→20:24)
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
[2016-11-13 11:49] VITALS: BP 124/76
--- NOTE | 2016-11-13 14:39 | General Progress Note ---
Assessment/Plan Assessment/Plan CHF - to increase diuresis. 2 D Echo unimpressive. Needs to be anticoagulated. INR 2.3 On Labetalol. BP still high. Revised meds again. Replete K Subjective Allergies: Coded Allergies: No Known Allergies (Unverified , 03/09/13) Subjective Still SOB. c/o Scrotal edema. Objective Last 24 Hour Vital Signs Date Time Temp Pulse Resp B/P (MAP) Pulse Ox O2 Delivery O2 Flow Rate FiO2 11/13/16 12:00 76 11/13/16 11:49 97.0 92 20 124/76 94 Nasal Cannula 2.0 11/13/16 08:54 101 147/106 11/13/16 08:00 66 11/13/16 08:00 96.4 101 20 147/106 93 Room Air 11/13/16 04:00 97.7 93 23 147/74 95 Nasal Cannula 3.0 11/13/16 04:00 87 11/13/16 00:00 97.9 92 23 141/79 94 Room Air 11/13/16 00:00 87 11/12/16 20:43 91 131/85 11/12/16 20:00 89 11/12/16 20:00 96.4 91 20 131/85 99 Nasal Cannula 2.0 11/12/16 16:02 96.4 90 20 146/73 99 Nasal Cannula 2.0 11/12/16 16:00 89 Intake and Output 11/13/16 11/14/16 19:00 07:00 Intake Total 360 ml Output Total 800 ml Balance -440 ml Intake Oral 360 ml Output Urine Total 800 ml Laboratory Tests 11/13/16 07:00: Prothrombin Time 25.6H, Prothromb Time International Ratio 2.4H, Sodium Level 144, Potassium Level 3.2L, Chloride Level 98, Carbon Dioxide Level 37H, Anion Gap 9, Blood Urea Nitrogen 21, Creatinine 1.0, Estimat Glomerular Filtration Rate > 60, Glucose Level 103, Calcium Level 8.5L, Magnesium Level 1.8 Height (Feet): 5 Height (Inches): 6.00 Weight (Pounds): 469 Objective Monitor A. Flutter ~ 100 Cv IRR Morbidly obese Lungs CTA Abd SNT. BS + E +3 B leg edema. +4 Scrotal edema MYRTLE NATARAJAN Nov 13, 2016 14:39
[2016-11-13 15:53] VITALS: BP 159/78
[2016-11-13] MEDS: Warfarin Sodium 5mg ORAL SCH (17:02)
[2016-11-13 20:00] VITALS: BP 134/85
--- NOTE | 2016-11-13 22:02 | Cardiology Progress Note ---
Assessment/Plan Assessment/Plan nreplace K and MG recommend urology eval Subjective Subjective dyspnea is much better, however, has disuria and swelling around the scrotum Objective Last 24 Hour Vital Signs Date Time Temp Pulse Resp B/P (MAP) Pulse Ox O2 Delivery O2 Flow Rate FiO2 11/13/16 20:24 86 134/85 11/13/16 20:00 97.8 86 134/85 Room Air 11/13/16 16:00 91 11/13/16 15:53 97.4 90 20 159/78 97 Room Air 11/13/16 12:00 76 11/13/16 11:49 97.0 92 20 124/76 94 Nasal Cannula 2.0 11/13/16 08:54 101 147/106 11/13/16 08:00 66 11/13/16 08:00 96.4 101 20 147/106 93 Room Air 11/13/16 04:00 97.7 93 23 147/74 95 Nasal Cannula 3.0 11/13/16 04:00 87 11/13/16 00:00 97.9 92 23 141/79 94 Room Air 11/13/16 00:00 87 General Appearance: other - morbidly obese EENT: PERRL/EOMI Neck: JVD Rhythm: Afib Cardiovascular: tachycardia Respiratory/Chest: crackles/rales Abdomen: other - severe edema nd scrotal edema Extremities: severe edema Intake and Output 11/13/16 11/14/16 19:00 07:00 Intake Total 960 ml Output Total 1400 ml 350 ml Balance -440 ml -350 ml Intake Oral 960 ml Output Urine Total 1400 ml 350 ml Laboratory Tests Test 11/13/16 07:00 Prothrombin Time 25.6 SEC (9.30-11.50) H Prothromb Time International Ratio 2.4 (0.9-1.1) H Sodium Level 144 mEQ/L (135-145) Potassium Level 3.2 mEQ/L (3.4-4.9) L Chloride Level 98 mEQ/L (98-107) Carbon Dioxide Level 37 mEQ/L (20-30) H Anion Gap 9 (5-15) Blood Urea Nitrogen 21 mg/dL (7-23) Creatinine 1.0 mg/dL (0.7-1.2) Estimat Glomerular Filtration Rate > 60 mL/min (>60) Glucose Level 103 mg/dL (74-106) Calcium Level 8.5 mg/dL (8.6-10.2) L Magnesium Level 1.8 mg/dL (1.7-2.5) OLIVER MALDONADO Nov 13, 2016 22:02
[2016-11-14] VITALS: BP 114/59
[2016-11-14 04:00] VITALS: BP 133/94
[2016-11-14] MEDS: Norco 5mg/325mg tab ORAL PRN (04:46)
[2016-11-14 07:00] LABS: INR 2.3 (0.9-1.1); PROTHROMBIN TIME 24.1 SEC (9.30-11.50)
[2016-11-14 08:00] VITALS: BP 143/81
[2016-11-14] MEDS: Labetalol 200mg tab ORAL SCH (09:42)
[2016-11-14] MEDS: Docusate 100mg cap ORAL SCH (09:42)
[2016-11-14] MEDS: Aspirin EC 81mg tab ORAL SCH (09:42)
[2016-11-14 11:46] LABS: ANION GAP 9 (5-15); CALCIUM 8.6 mg/dL (8.6-10.2); CARBON DIOXIDE 36 mEQ/L (20-30); CHLORIDE 98 mEQ/L (98-107); GLOMERULAR FILTRATION RATE > 60 mL/min (>60); HEMOLYSIS 0; MAGNESIUM 1.8 mg/dL (1.7-2.5); POTASSIUM 3.6 mEQ/L (3.4-4.9); SODIUM 143 mEQ/L (135-145)
[2016-11-14 12:00] VITALS: BP 124/52
--- NOTE | 2016-11-14 13:11 | General Progress Note ---
Assessment/Plan Assessment/Plan CHF - improved. INR 2.3 On Labetalol. Stable for DC To follow @ [facility] Subjective Allergies: Coded Allergies: No Known Allergies (Unverified , 03/09/13) Subjective Much less SOB. Less Scrotal edema. Objective Last 24 Hour Vital Signs Date Time Temp Pulse Resp B/P (MAP) Pulse Ox O2 Delivery O2 Flow Rate FiO2 11/14/16 09:42 95 143/81 11/14/16 08:00 97.9 93 22 143/81 96 Nasal Cannula 3.0 11/14/16 04:06 102 11/14/16 04:00 97.0 97 24 133/94 90 Nasal Cannula 2.0 11/14/16 00:00 97.9 93 23 114/59 100 Nasal Cannula 2.0 11/13/16 23:44 86 11/13/16 20:24 86 134/85 11/13/16 20:23 96 11/13/16 20:00 97.8 86 134/85 Room Air 11/13/16 16:00 91 11/13/16 15:53 97.4 90 20 159/78 97 Room Air Laboratory Tests 11/14/16 06:00: Prothrombin Time 24.1H, Prothromb Time International Ratio 2.3H, Sodium Level 143, Potassium Level 3.6, Chloride Level 98, Carbon Dioxide Level 36H, Anion Gap 9, Blood Urea Nitrogen 19, Creatinine 1.0, Estimat Glomerular Filtration Rate > 60, Glucose Level 105, Calcium Level 8.6, Magnesium Level 1.8 Height (Feet): 5 Height (Inches): 6.00 Weight (Pounds): 462 Objective Monitor A. Flutter ~ 90 Cv IRR/IRR Morbidly obese Lungs CTA Abd SNT. BS + E +2 B leg edema. + 3 Scrotal edema MYRTLE NATARAJAN Nov 14, 2016 13:11
[2016-11-14] MEDS ORDERED: PROTONIX40 MG ORAL (13:14)
[2016-11-14] MEDS ORDERED: CLOTRIMAZOLE15 GM TOPIC (13:14)
[2016-11-14] MEDS ORDERED: COUMADIN5 MG ORAL (13:14)
[2016-11-14] MEDS ORDERED: NORMODYNE200 MG ORAL (13:14)
[2016-11-14 16:00] VITALS: BP 122/89
[2016-11-14] MEDS ORDERED: Warfarin Sodium 2.5mg ORAL ONE (17:00)
[2016-11-14] MEDS: Warfarin Sodium 5mg ORAL SCH (17:27)
[2016-11-14] MEDS ORDERED: Tubing IV Secondary IV ONE (18:54)
--- NOTE | 2016-11-16 14:33 | Discharge Summary ---
Discharge Summary Hospital Course Date of Admission Nov 06, 2016 at 03:15 Date of Discharge Nov 14, 2016 at 18:55 Admitting Diagnosis Rapid Atrial Fibrillation RACHELL Benson is a 41 year old male who was admitted on Nov 06, 2016 at 03:15 for Rapid Atrial Fibrillation Hospital Course [id number] Discharge Discharge Disposition Patient was discharged to Home (01) Discharge Diagnoses: Fanny Cisneros NP Nov 16, 2016 14:33
--- NOTE | 2016-11-17 02:45 | Discharge Summary 2 SIG ---
DATE OF ADMISSION: 11/06/2016 DATE OF DISCHARGE: 11/14/2016 Brief Hospital Course: The patient is a 41-year-old male, who has gained approximately 300 pounds in the past four years and became short of breath and also has edema of his scrotum and lower extremity, presented to the ED complaining of shortness of breath. On evaluation at ED, EKG was in rapid atrial fibrillation. The patient had generalized edema and denied any history of atrial fibrillation in the past. He was given IV Cardizem with improvement of rhythm. Chest x-ray done showed cardiomegaly with vascular congestion. He was given metoprolol and was eventually started on anticoagulated. He was given Coumadin. Echocardiogram done was unimpressive. Metoprolol was changed to labetalol. Electrolytes were repleted. INR was 2.3. The patient was eventually discharged to follow up at [facility]. FINAL DIAGNOSES: 1. Atrial fibrillation with rapid ventricular response. 2. Acute on chronic congestive heart failure. 3. Diastolic dysfunction. 4. Morbid obesity. 5. Uncontrolled hypertension. Hydralazine was added to the patient's regimen. Disposition: The patient was discharged home. Advised to follow up with outside clinic. DISCHARGE MEDICATIONS: Refer to medication list. Rosemarie Jackson M.D. I have been assigned to dictate discharge summary on this account and I was not involved in the patient's management. Fanny Cisneros N.P. DR: COURTNEY JOB#: [id number] CC: MARIZA
== END 2016-11-14 18:55 | disposition home or self-care (01) | DRG 292 ==
LOC: EMR 02:05 → 2E 03:15 → EDBEDREQ 04:27
DX: I11.0 Hypertensive heart disease with heart failure (principal); Z68.45 Body mass index [BMI] 70 or greater, adult; I48.92 Unspecified atrial flutter; E66.01 Morbid (severe) obesity due to excess calories; I50.33 Acute on chronic diastolic (congestive) heart failure; R73.03 Prediabetes; I48.0 Paroxysmal atrial fibrillation
CPT/HCPCS: 36415; 51702; 71010; 80048; 80053; 81001; 83036; 83735; 83880; 84443; 84484; 85025; 85379; 85610; 93005; 93306

== ENCOUNTER 2016-11-15 17:23 | Emergency (ER) | payer SELFPAY ==
[~2016-11-15] VITALS: Ht 167.6 cm; Wt 195.0 kg
[~2016-11-15 17:23] MED LIST changes: +CLOTRIMAZOLE15 GM TOPIC; +COUMADIN5 MG ORAL; +NORMODYNE200 MG ORAL; +PROTONIX40 MG ORAL
[2016-11-15 17:45] VITALS: BP 128/87
[2016-11-15 18:25] LABS: EOSINOPHILS % (AUTO) 1.6 % (0.0-3.0); LYMPHOCYTES % (AUTO) 24.1 % (20.0-45.0); MEAN CORPUSCULAR HEMOGLOBIN 22.9 PG (27.0-31.0); MEAN CORPUSCULAR VOLUME 76 FL (80-99); MONOCYTES % (AUTO) 10.4 % (1.0-10.0); NEUTROPHILS % (AUTO) 62.9 % (45.0-75.0); PLATELET COUNT 280 K/UL (150-450); RED BLOOD COUNT 4.98 M/UL (4.70-6.10); RED CELL DISTRIBUTION WIDTH 17.3 % (11.6-14.8); WHITE BLOOD COUNT 6.4 K/UL (4.8-10.8)
[2016-11-15 18:43] LABS: TROPONIN I < 0.30 ng/mL (<=0.30)
[2016-11-15 18:44] LABS: ALANINE AMINOTRANSFERASE 12 U/L (3-41); ALBUMIN/GLOBULIN RATIO 0.9 (1.0-2.7); ANION GAP 9 (5-15); ASPARTATE AMINO TRANSFERASE 24 U/L (5-40); CALCIUM 8.5 mg/dL (8.6-10.2); CARBON DIOXIDE 33 mEQ/L (20-30); CHLORIDE 98 mEQ/L (98-107); GLOMERULAR FILTRATION RATE > 60 mL/min (>60); HEMOLYSIS 31; POTASSIUM 3.8 mEQ/L (3.4-4.9); SODIUM 140 mEQ/L (135-145); TOTAL PROTEIN 6.3 g/dL (6.6-8.7)
[2016-11-15 18:54] LABS: CKMB < 1.5 ng/mL (< 6.7)
[2016-11-15 19:15] VITALS: BP 159/110
[2016-11-15 20:08] LABS: ABG ALLEN TEST POSITIVE; ABG BASE EXCESS 8.1; ABG PCO2 41.1 mmHg (35.0-45.0)
[2016-11-15 21:09] VITALS: BP 149/124
--- NOTE | 2016-11-15 21:55 | Emergency Room Report ---
History of Present Illness General Chief Complaint: General Complaint Source: Patient, Medical Record Present Illness HPI 41-year-old male presents to ED for evaluation. Patient states that his feeling short of breath with swollen legs and lower abdomen. Patient has history of CHF and was discharged from here yesterday. Denies fevers or chills. Denies chest pain. States he feels short of breath when laying flat. Patient states he did not have a chance to fill his medications yet after discharge. No other aggravating or relieving factors. Denies any other associated symptoms Allergies: Coded Allergies: No Known Allergies (Unverified , 03/09/13) Patient History Past Medical History: DM, HTN Past Surgical History: none Pertinent Family History: none Social History: Denies: smoking, alcohol use, drug use Immunizations: UTD Reviewed Nursing Documentation: PMH: Agreed, PSxH: Agreed Nursing Documentation-PMH Past Medical History: No History, Except For Hx Cardiac Problems: No Hx Hypertension: Yes Hx Diabetes: Yes Hx Cancer: No Hx Gastrointestinal Problems: No Hx Neurological Problems: No Hx Cerebrovascular Accident: No Hx Head Trauma: No Review of Systems All Other Systems: negative except mentioned in HPI Physical Exam Vital Signs Date Time Temp Pulse Resp B/P (MAP) Pulse Ox O2 Delivery O2 Flow Rate FiO2 11/15/16 17:18 99.1 116 20 174/114 95 Room Air Sp02 EP Interpretation: reviewed, normal General Appearance: no apparent distress, alert, GCS 15, non-toxic, obese Head: normocephalic, atraumatic Eyes: bilateral eye normal inspection, bilateral eye PERRL ENT: hearing grossly normal, normal pharynx, no angioedema, normal voice Neck: full range of motion, supple/symm/no masses Respiratory: chest non-tender, lungs clear, normal breath sounds, speaking full sentences Cardiovascular #1: regular rate, rhythm, no edema Cardiovascular #2: 2+ carotid (R), 2+ carotid (L), 2+ radial (R), 2+ radial (L) , 2+ dorsalis pedis (R), 2+ dorsalis pedis (L) Gastrointestinal: normal bowel sounds, non tender, soft, non-distended, no guarding, no rebound Rectal: deferred Genitourinary: normal inspection, no CVA tenderness Musculoskeletal: back normal, gait/station normal, normal range of motion, non- tender, swelling - 2 + pitting edema b/l LE Neurologic: alert, oriented x3, responsive, motor strength/tone normal, sensory intact, speech normal Psychiatric: judgement/insight normal, memory normal, mood/affect normal, no suicidal/homicidal ideation Reflexes: 3+ bicep (R), 3+ bicep (L), 3+ tricep (R), 3+ tricep (L), 3+ knee (R) , 3+ knee (L) Skin: normal color, no rash, warm/dry, well hydrated Lymphatic: no adenopathy Medical Decision Making Diagnostic Impression: Primary Impression: CHF (congestive heart failure) Qualified Codes: I50.9 - Heart failure, unspecified Additional Impression: Noncompliance ER Course Hospital Course 41-year-old male presents ED complaining of shortness of breath, lower extremity swelling Differential diagnoses include: Rib fracture, ND/unstable angina, CHF, pneumonia Clinical course Patient placed on stretcher. After initial history and physical I ordered labs , EKG, chest x-ray. labs reviewed- all electrolytes normal, troponins negative, no leukocytosis, hemoglobin/hematocrit stable, BNP > 4000 EKG - aflutter, no acute ischemic changes Chest [id number]. no significant congestion Patient feels significantly better after receiving IV Lasix. Patient was discharged yesterday from hospital. Patient is noncompliant with his medications and was noncompliant prior to previous admission. We explained to the patient importance of receiving his medications. Patient states he understands and will fill his medication prescriptions I. I feel this is a highly complex case requiring extensive working including EKG/Rhythm strip, Xray/CT/US, Blood/urine lab work, repeat exams while in ED, and administration of strong opiates/narcotics for pain control, admission to hospital or close patient follow up. Diagnosis - CHF, noncompliance Stable and discharged to home. take medications as prescribed. Instructed to followup with PMD. Return to ED if symptoms recur or worsen Labs Test 11/15/16 18:13 11/15/16 19:53 White Blood Count 6.4 K/UL (4.8-10.8) Red Blood Count 4.98 M/UL (4.70-6.10) Hemoglobin 11.4 G/DL (14.2-18.0) Hematocrit 38.0 % (42.0-52.0) Mean Corpuscular Volume 76 FL (80-99) Mean Corpuscular Hemoglobin 22.9 PG (27.0-31.0) Mean Corpuscular Hemoglobin Concent 30.0 G/DL (32.0-36.0) Red Cell Distribution Width 17.3 % (11.6-14.8) Platelet Count 280 K/UL (150-450) Mean Platelet Volume 7.0 FL (6.5-10.1) Neutrophils (%) (Auto) 62.9 % (45.0-75.0) Lymphocytes (%) (Auto) 24.1 % (20.0-45.0) Monocytes (%) (Auto) 10.4 % (1.0-10.0) Eosinophils (%) (Auto) 1.6 % (0.0-3.0) Basophils (%) (Auto) 1.0 % (0.0-2.0) Sodium Level 140 mEQ/L (135-145) Potassium Level 3.8 mEQ/L (3.4-4.9) Chloride Level 98 mEQ/L (98-107) Carbon Dioxide Level 33 mEQ/L (20-30) Anion Gap 9 (5-15) Blood Urea Nitrogen 15 mg/dL (7-23) Creatinine 1.0 mg/dL (0.7-1.2) Estimat Glomerular Filtration Rate > 60 mL/min (>60) Glucose Level 112 mg/dL (74-106) Calcium Level 8.5 mg/dL (8.6-10.2) Total Bilirubin 0.7 mg/dL (0.0-1.2) Aspartate Amino Transf (AST/SGOT) 24 U/L (5-40) Alanine Aminotransferase (ALT/SGPT) 12 U/L (3-41) Alkaline Phosphatase 79 U/L (40-129) Total Creatine Kinase 144 U/L (38-174) Creatine Kinase MB < 1.5 ng/mL (< 6.7) Creatine Kinase MB Relative Index Troponin I < 0.30 ng/mL (<=0.30) Pro-B-Type Natriuretic Peptide 4029 pg/mL (0-125) Total Protein 6.3 g/dL (6.6-8.7) Albumin 3.1 g/dL (3.5-5.2) Globulin 3.2 g/dL Albumin/Globulin Ratio 0.9 (1.0-2.7) Arterial Blood pH 7.508 (7.350-7.450) Arterial Blood Partial Pressure CO2 41.1 mmHg (35.0-45.0) Arterial Blood Partial Pressure O2 69.9 mmHg (75.0-100.0) Arterial Blood HCO3 31.9 mmol/L (22.0-26.0) Arterial Blood Oxygen Saturation 94.3 % (92.0-98.0) Arterial Blood Base Excess 8.1 Tom Test Positive EKG Diagnostic Results Rate: normal Rhythm: other - aflutter ST Segments: no acute changes ASA given to the pt in ED: No Rhythm Strip Diag. Results EP Interpretation: yes Rhythm: NSR, no PVC's, no ectopy Chest X-Ray Diagnostic Results Chest X-Ray Diagnostic Results : Chest X-Ray Ordered: Yes # of Views/Limited/Complete: 1 View Indication: Shortness of Breath EP Interpretation: Yes Interpretation: no consolidation, no effusion, no pneumothorax, no acute cardiopulmonary disease, other - cardiomegaly Impression: Other - cardiomegaly Electronically Signed by: Electronically signed by Franki Ingram MD Last Vital Signs Date Time Temp Pulse Resp B/P (MAP) Pulse Ox O2 Delivery O2 Flow Rate FiO2 11/15/16 21:09 98.3 106 25 149/124 96 Room Air 106 Status: improved Disposition: HOME, SELF-CARE Condition: Stable Referrals: NOT CHOSEN ADRIENNE/,REFERRING (PCP) Patient Instructions: FRANKI Titus M.D. Nov 15, 2016 21:55
--- NOTE | 2016-11-16 12:15 | Diagnostic Imaging Report ---
Indication: SOB Technique: One view of the chest Comparison: 11/06/2016 Findings: The left costophrenic angle is cut off of the image. The body habitus limits evaluation. Heart is enlarged. The lungs and pleural spaces are grossly clear. No significant interim change Impression: Cardiomegaly No definite acute process
== END 2016-11-15 21:30 | disposition home or self-care (01) ==
LOC: EDBD 17:23 → EMR 17:59 → EDBEDREQ 21:32
DX: I50.9 Heart failure, unspecified (principal); Z91.19 Patient's noncompliance with other medical treatment and regimen; I10 Essential (primary) hypertension; E11.9 Type 2 diabetes mellitus without complications
CPT/HCPCS: 36415; 36600; 71010; 80053; 82550; 82553; 82803; 83880; 84484; 85025; 87081; 93005; 96374; 99284; J1940